=== PATIENT | male | born 1955 | race Caucasian/White ===

== ENCOUNTER 2017-04-28 08:20 | Day surgery (SDC) | payer MEDICAID ==
[~2017-04-28] VITALS: Ht 185.4 cm; Wt 103.4 kg
--- NOTE | ~2017-04-28 | OP ---
PATIENT NAME: CRISTINA BAPTISTE MEDICAL RECORD: [id number] :55 LOCATION:D.OPS ADMISSION DATE: SURGEON: CRISTIANO URENA MD DATE OF OPERATION: 04/28/2017 PREOPERATIVE DIAGNOSES: 1. Right back sebaceous cyst. 2. Hepatitis C. 3. Gastroesophageal reflux disease. 4. Benign prostatic hypertrophy. POSTOPERATIVE DIAGNOSES: 1. Right back sebaceous cyst. 2. Hepatitis C. 3. Gastroesophageal reflux disease. 4. Benign prostatic hypertrophy. PROCEDURE: Excision of 3 cm right back sebaceous cyst. SURGEON: Cristiano Urena MD REPORT OF PROCEDURE: The patient was placed in the left lateral decubitus position and the right upper back was prepped and draped in sterile fashion. A longitudinal incision was made in an ovoid fashion around the opening of the sebaceous cyst. As we got in, the subcutaneous tissues, it was noted to be inflamed from a recent infection. The sebaceous cyst was excised and sent off for permanent specimen. The side shore were difficult to determine because of the inflammation and for this reason, I just cooked the subcutaneous fatty tissue with a high level electrocautery. With the conclusion of the case, we made sure there was no sign of any bleeding. The wound was then irrigated out with normal saline and infused with 10 mL of 0.25% Marcaine with epinephrine. The subcutaneous tissues were reapproximated with interrupted 3-0 Vicryls and the skin was closed with running subcutaneous 5-0 Monocryl. COMPLICATIONS: None. CONDITION: Stable. ANESTHESIA: General endotracheal and local. BLOOD LOSS: Minimal. TRANSINT:[id number] Voice Confirmation ID: [id number] DOCUMENT ID: [id number] CRISTIANO URENA MD CC: DENIS PINEDA MD [id number] DICTATION DATE: 04/28/17 1226 FOUNDATION RELATIONS MANAGER: 04/28/17 1245 [facility] [address] [place] [address]
[~2017-04-28 08:20] MED LIST: CIPRO500 MG PO; FLOMAX0.4 MG PO; HYDROCODONE-APA1 TAB PO; LEVAQUIN500 MG PO; OMNICEF300 MG PO; PRILOSEC20 MG PO; ROCEPHIN 1 GM/D51 G1 IM; SUMATRIPTAN SUC25 MG PO; TORADOL10 MG PO; UROCIT-K10 MEQ PO
[2017-04-28 09:53] LABS: BASOPHILS 0.3 % (0-2); EOSINOPHILS 0.6 % (0-7); IMMATURE GRANULOCYTES 0.4 % (0-5); LYMPHOCYTES 34.2 % (15-50); MCH 30.6 pg (26.0-34.0); MCV 89.9 fL (80.0-100.0); MEAN PLATELET VOLUME 10.9 fL (7.4-10.4); MONOCYTES 8.5 % (2-11); PLATELET COUNT 210 10x3/uL (130-400); RBC 5.56 10x6/uL (4.20-6.10); RDW 13.7 % (11.5-14.5)
[2017-04-28] MEDS ORDERED: LIPITOR10 MG PO (09:56)
[2017-04-28 09:59] VITALS: BP 123/86; Ht 185.4 cm; Wt 103.4 kg
[2017-04-28 10:02] LABS: ANION GAP 13.7 mmol/L (8-16); CALCIUM 8.8 mg/dL (8.5-10.1); CARBON DIOXIDE 24.5 mmol/L (21.0-32.0); CREATININE - SERUM 1.2 mg/dL (0.6-1.3); POTASSIUM - SERUM 4.2 mmol/L (3.5-5.1)
[2017-04-28] MEDS ORDERED: HYDROCODONE-APA1 TAB PO (12:23)
== END 2017-04-28 14:29 | disposition home or self-care (01) ==
LOC: D.OPS 08:20 → D.PAN 12:30 → D.OPS 14:29
PROVIDERS: Surgery
DX: L72.3 Sebaceous cyst (principal); B19.20 Unspecified viral hepatitis C without hepatic coma; F17.200 Nicotine dependence, unspecified, uncomplicated; K21.9 Gastro-esophageal reflux disease without esophagitis; N40.0 Benign prostatic hyperplasia without lower urinary tract symptoms; Z01.812 Encounter for preprocedural laboratory examination

== ENCOUNTER 2018-08-27 12:28 | Inpatient (IN) | payer MEDICAID ==
[~2018-08-27] VITALS: Ht 185.4 cm; Wt 109.1 kg
[~2018-08-27 12:28] MED LIST changes: +LIPITOR10 MG PO
[2018-08-27 12:58] LABS: BASOPHILS 0.2 % (0-2); EOSINOPHILS 1.7 % (0-7); HEMOGLOBIN 15.8 g/dL (13.5-17.5); IMMATURE GRANULOCYTES 0.3 % (0-5); LYMPHOCYTES 28.9 % (15-50); MCH 30.9 pg (26.0-34.0); MCHC 33.6 g/dL (31.0-37.0); MEAN PLATELET VOLUME 10.8 fL (7.4-10.4); MONOCYTES 8.2 % (2-11); NEUTROPHILS 60.7 % (40-80); PLATELET COUNT 228 10x3/uL (130-400); RBC 5.11 10x6/uL (4.20-6.10); RDW 13.5 % (11.5-14.5); WBC 14.5 10x3/uL (4.8-10.8)
[2018-08-27 13:07] LABS: APTT 27.5 SECONDS (22.8-39.4); INR 1.07 (0.85-1.17); PROTIME 13.4 SECONDS (11.6-15.0)
[2018-08-27 13:11] LABS: ALBUMIN 3.6 g/dL (3.4-5.0); ALKALINE PHOSPHATASE 79 U/L (46-116); ALT (SGPT) 37 U/L (10-68); BILIRUBIN - TOTAL 0.25 mg/dL (0.2-1.3); CALC OSMOLALITY 285 mosm/kg (275-300); CALCIUM 9.2 mg/dL (8.5-10.1); CARBON DIOXIDE 26.6 mmol/L (21.0-32.0); CHLORIDE - SERUM 106 mmol/L (98-107); CREATININE - SERUM 2.1 mg/dL (0.6-1.3); GLUCOSE 95 mg/dL (74-106); POTASSIUM - SERUM 4.5 mmol/L (3.5-5.1); PROTEIN - SERUM 8.4 g/dL (6.4-8.2); SODIUM 139 mmol/L (136-145); UREA NITROGEN 36 mg/dL (7-18); eGFR NON AFRICAN AMERICAN 34 mL/min (90-120)
[2018-08-27 13:23] LABS: CKMB 1.3 U/L (0.0-3.6); CREATINE KINASE 132 UL (21-232); TROPONIN-I < 0.017 ng/mL (0.000-0.060)
[2018-08-27 15:00] VITALS: BP 103/68
[2018-08-27 15:15] VITALS: BP 112/74
[2018-08-27 15:45] VITALS: BP 110/73
--- NOTE | 2018-08-27 17:25 | NUR ---
RECEIVED PT FROM ER VIA WHEELCHAIR, ACCOMPANIED BY HOSPITAL STAFF. ALERT AND ORIENTED. UP AD SANTHOSH. NO C/O PAIN. NO S/S OF ACUTE DISTRESS NOTED. IV TO RIGHT HAND, NS INFUSING @ 125ML/HR. PT HAS HX OF IV DRUG USE. PT DENIES ANYTHING FURTHER AT THIS TIME. CALL LIGHT IN REACH. WILL CONTINUE TO MONITOR.
[2018-08-27 18:07] VITALS: BP 115/78; Ht 185.4 cm; Wt 109.1 kg
[2018-08-27 19:43] LABS: CKMB 1.1 U/L (0.0-3.6); CREATINE KINASE 118 UL (21-232); TROPONIN-I < 0.017 ng/mL (0.000-0.060)
[2018-08-27 20:00] VITALS: BP 126/77
--- NOTE | 2018-08-27 20:36 | NUR ---
PT SITTING UP IN BED ON PHONE WITH FAMILY. STATED HE NEEDS TO GO WALK AROUND, STARTED PT IV ABX AND ASKED PT TO JUST WALK WITH POLE AROUND NURSING UNIT. NO OTHER NEEDS VOICD, NO S/S OF DISTRESS. CONMTINUE WITH PLAN OF CARE
--- NOTE | 2018-08-27 20:57 | NUR ---
PT SITTING UP IN BED REQUESTED PAIN MEDICATION WHEN I CAME IN WITH 2100 MEDS. ADVISED PT HE STILL HAD AN HOUR BEFORE I CAN ADMINISTER PAIN MEDS. PT STATED ROOM IS HOT AND HE NEEDED IT TURNED DOWN TO BE COMFORTABLE. PT AIR SET ON 50. ENCOURAGED PT TO SHUT DOOR TO ROOM TO KEEP AIR IN ROOM INSTEAD OF HALLWAYS. NO OTHER NEEDS VOICED. CONTINUE WITH PLAN OF CARE
[2018-08-28] VITALS: BP 129/85
[2018-08-28 01:09] LABS: CKMB 1.2 U/L (0.0-3.6); CREATINE KINASE 133 UL (21-232); TROPONIN-I < 0.017 ng/mL (0.000-0.060)
--- NOTE | 2018-08-28 01:26 | NUR ---
I have reviewed this patient and I concur with the Shift Assessment completed by the Licensed Practical Nurse today this shift.
--- NOTE | 2018-08-28 03:19 | NUR ---
ADMINISTERED PRN PAIN MEDICATION PER PT REQUEST. STATED HE IS UNABLE TO SLEEP. PAIN IS IN KIDNEYS AND SIDE PER PT DUE TO HX OF KIDNEY STONES. PT HAS WALKED AROUND NURSES STATION SEVERAL TIMES AND ALSO DRINKING COFFEE THROUGH THE EVENING. NO OTHER NEEDS VOICED. CL IN REACH. CONTINUE WITH PLAN OF CARE
[2018-08-28 04:00] VITALS: BP 134/86
[2018-08-28 05:29] LABS: BASOPHILS 0 % (0-2); EOSINOPHILS 0 % (0-7); HEMATOCRIT 43.9 % (42.0-54.0); HEMOGLOBIN 14.7 g/dL (13.5-17.5); IMMATURE GRANULOCYTES 0.3 % (0-5); LYMPHOCYTES 10.5 % (15-50); MCH 30.6 pg (26.0-34.0); MCHC 33.5 g/dL (31.0-37.0); MCV 91.3 fL (80.0-100.0); MEAN PLATELET VOLUME 11.6 fL (7.4-10.4); MONOCYTES 0.9 % (2-11); NEUTROPHILS 88.3 % (40-80); PLATELET COUNT 211 10x3/uL (130-400); RBC 4.81 10x6/uL (4.20-6.10); RDW 13.5 % (11.5-14.5); WBC 15.3 10x3/uL (4.8-10.8)
[2018-08-28 06:12] LABS: CALC OSMOLALITY 288 mosm/kg (275-300); CALCIUM 8.7 mg/dL (8.5-10.1); CARBON DIOXIDE 21.7 mmol/L (21.0-32.0); CHLORIDE - SERUM 106 mmol/L (98-107); CKMB 1.3 U/L (0.0-3.6); CREATINE KINASE 133 UL (21-232); CREATININE - SERUM 1.6 mg/dL (0.6-1.3); GLUCOSE 139 mg/dL (74-106); POTASSIUM - SERUM 4.5 mmol/L (3.5-5.1); SODIUM 139 mmol/L (136-145); TROPONIN-I < 0.017 ng/mL (0.000-0.060); UREA NITROGEN 37 mg/dL (7-18); eGFR NON AFRICAN AMERICAN 47 mL/min (90-120)
--- NOTE | 2018-08-28 07:25 | NUR ---
PT SITTING UP IN BED, ALERT AND ORIENTED. UP AD SANTHOSH. STRICT I&O. INCENTIVE SPIROMETER AT BEDSIDE. ON TELEMETRY SR 63. IV TO RIGHT HAND, NS INFUSING @ 125ML/HR. SITE PATENT WITHOUT REDNESS OR SWELLING. PT C/O PAIN, GAVE NORCO 10 FOR PAIN. NO S/S OF ACUTE DISTRESS NOTED. CALL LIGHT IN REACH. PT DENIES ANYTHING FURTHER AT THIS TIME. WILL CONTINUE TO MONITOR.
[2018-08-28 08:23] VITALS: BP 127/87
[2018-08-28 11:58] VITALS: BP 127/73
[2018-08-28] MEDS ORDERED: ASPIRIN325 MG PO (13:50)
[2018-08-28] MEDS ORDERED: OMNICEF300 MG PO (13:51)
[2018-08-28] MEDS ORDERED: FLORAJEN3 CAPS460 MG PO (13:51)
[2018-08-28] MEDS ORDERED: PREDNISONE10 MG PO (13:52)
[2018-08-28] MEDS ORDERED: Nicoderm [PBKC] TRANSDERM (13:52)
--- NOTE | 2018-08-28 15:00 | MORECARE ---
CASE MANAGEMENT DISCHARGE SUMMARY PATIENT: CRISTINA BAPTISTEATT UNIT: [id number] ADM DATE: 08/27/18 AGE: 63 : 55 SEX: M ROOM/BED: D.2224 AUTHOR: DARIUSZDOC PHYSICIAN: REFERRING PHYSICIAN: MONSTER MONCADA DO DATE OF SERVICE: 08/28/18 Discharge Plan Patient Name: CRISTINA BAPTISTE Facility: [facility]:[place] : 1955 Planned Disposition: Home Anticipated Discharge Date: 08/28/18 Discharge Date: Expected LOS: 1 Initial Reviewer: [email or web address] Initial Review Date: 08/28/2018 Generated: 08/28/18 4:00 pm Comments DCP- Discharge Planning Updated by [email or web address]: Brenda Hernandes on 08/28/18 1:[address] Patient Name: CRISTINA BAPTISTE Admission Status: ER Accout number: [id number] Admission Date: 08-27-2018 : 1955 Admission Diagnosis: Attending: MONSTER MONCADA Current LOS: 1 Anticipated DC Date: 08-28-2018 Planned Disposition: Home Primary Insurance: MEDICAID [place] Discharge Planning Comments: CM met with patient to complete initial dc planning assessment. CM educated patient on the CM role and verbal consent given by patient to complete assessment. Patient lives at home with his . At discharge patient plans to return and feels this is a safe discharge. CM discussed availability of home health, rehab services, and medical equipment. Patient denied known discharge needs at this time. States his will pick him up for discharge. No needs identified. CM will continue to follow and will assist as needed with dc plans/needs. Handkerchief Presser: Brenda Hernandes DCPIA - Discharge Planning Initial Assessment Updated by [email or web address]: Brenda Hernandes on 08/28/18 2:54 pm * Is the patient Alert and Oriented? Yes * How many steps to enter\exit or inside your home? 3/0 * PCP Dr. Easton * [facility] [address] * Preadmission Environment Home with Family * ADLs Independent * Equipment None * List name and contact numbers for known caregivers / representatives who currently or will assist patient after discharge: Abeba Baptiste - - [phone] * Verbal permission to speak to the caregivers and representatives has been obtained from the patient. Yes * Community resources currently utilized None * Additional services required to return to the preadmission environment? No * Can the patient safely return to the preadmission environment? Yes * Has this patient been hospitalized within the prior 30 days at any hospital? Yes Patient Name: CRISTINA BAPTISTE Page 27196 at 1500 All edits/amendments must be made on the electronic document DICTATION DATE: 08/28/18 1500 WOODEN FENCE ERECTOR: VALENCIA 08/28/18 1500 RPT#: [id number] DC DATE: STATUS: ADM IN [facility] [address] [place] [address] END OF REPORT
--- NOTE | 2018-08-28 15:09 | NUR ---
PT DISCHARGED HOME WITH FAMILY VIA WHEELCHAIR. DISCONTINUED IV, CATHETER TIP INTACT. WENT OVER DISCHARGE INSTRUCTIONS WITH PT, PT VERBALIZED UNDERSTANDING. PT DENIES ANYTHING FURTHER.
--- NOTE | 2018-08-29 16:13 | MORECARE ---
CASE MANAGEMENT DISCHARGE SUMMARY PATIENT: CRISTINA BAPTISTEATT UNIT: [id number] ADM DATE: 08/27/18 AGE: 63 : 55 SEX: M ROOM/BED: D.2224 AUTHOR: DARIUSZDOC PHYSICIAN: REFERRING PHYSICIAN: MONSTER MONCADA DO DATE OF SERVICE: 08/29/18 Discharge Plan Patient Name: CRISTINA BAPTISTE Facility: [facility]:[place] : 1955 Planned Disposition: Home Anticipated Discharge Date: 08/28/18 Discharge Date: 08/28/2018 Expected LOS: 1 Initial Reviewer: [email or web address] Initial Review Date: 08/28/2018 Generated: 08/29/18 5:13 pm Comments DCP- Discharge Planning Updated by [email or web address]: Brenda Hernandes on 08/28/18 1:[address] Patient Name: CRISTINA BAPTISTE Admission Status: ER Accout number: [id number] Admission Date: 08-27-2018 : 1955 Admission Diagnosis: Attending: MONSTER MONCADA Current LOS: 1 Anticipated DC Date: 08-28-2018 Planned Disposition: Home Primary Insurance: MEDICAID [place] Discharge Planning Comments: CM met with patient to complete initial dc planning assessment. CM educated patient on the CM role and verbal consent given by patient to complete assessment. Patient lives at home with his . At discharge patient plans to return and feels this is a safe discharge. CM discussed availability of home health, rehab services, and medical equipment. Patient denied known discharge needs at this time. States his will pick him up for discharge. No needs identified. CM will continue to follow and will assist as needed with dc plans/needs. Agency Operator: Brenda Hernandes DCPIA - Discharge Planning Initial Assessment Updated by [email or web address]: Brenda Hernandes on 08/28/18 2:54 pm * Is the patient Alert and Oriented? Yes * How many steps to enter\exit or inside your home? 3/0 * PCP Dr. Easton * [facility] [address] * Preadmission Environment Home with Family * ADLs Independent * Equipment None * List name and contact numbers for known caregivers / representatives who currently or will assist patient after discharge: Abeba Baptiste - - [phone] * Verbal permission to speak to the caregivers and representatives has been obtained from the patient. Yes * Community resources currently utilized None * Additional services required to return to the preadmission environment? No * Can the patient safely return to the preadmission environment? Yes * Has this patient been hospitalized within the prior 30 days at any hospital? Yes Last DP export: 08/28/18 2:00 p Patient Name: CRISTINA BAPTISTE Page [id number] at 1613 All edits/amendments must be made on the electronic document DICTATION DATE: 08/29/181611 ETYMOLOGY TEACHER: VALENCIA 08/29/181611 RPT#: [id number] DC DATE:08/28/18 STATUS: DIS IN [facility] [address] [place] [address] END OF REPORT
== END 2018-08-28 15:34 | disposition home or self-care (01) | DRG 194 ==
LOC: D.ER 12:28 → D.MS 16:25
PROVIDERS: Emergency Medicine; ADMIT Family Medicine; ATTEND Family Medicine
DX: J18.9 Pneumonia, unspecified organism (principal); J90 Pleural effusion, not elsewhere classified; F17.213 Nicotine dependence, cigarettes, with withdrawal; N17.9 Acute kidney failure, unspecified; E86.0 Dehydration; I10 Essential (primary) hypertension; M19.90 Unspecified osteoarthritis, unspecified site; N20.0 Calculus of kidney; E66.9 Obesity, unspecified; Z68.31 Body mass index [BMI] 31.0-31.9, adult

== ENCOUNTER 2020-01-03 05:42 | Day surgery (SDC) | payer MEDICAID ==
[~2020-01-03] VITALS: Ht 185.4 cm; Wt 106.1 kg
--- NOTE | ~2020-01-03 | OP ---
PATIENT NAME: CRISTINA BAPTISTE MEDICAL RECORD: [id number] :55 LOCATION:D.OPS ADMISSION DATE: SURGEON: CRISTIANO URENA MD DATE OF OPERATION: 01/03/2020 PREOPERATIVE DIAGNOSES: 1. Left posterior shoulder sebaceous cyst. 2. Tobacco dependence syndrome. 3. Chronic hepatitis C. 4. Benign prostatic hypertrophy. POSTOPERATIVE DIAGNOSES: 1. Left posterior shoulder sebaceous cyst. 2. Tobacco dependence syndrome. 3. Chronic hepatitis C. 4. Benign prostatic hypertrophy. PROCEDURE: Excision of 3 cm left posterior shoulder sebaceous cyst. SURGEON: Cristiano Urena MD REPORT OF PROCEDURE: The patient was placed in the right lateral decubitus position and the left posterior shoulder was prepped and draped in sterile fashion. An ovoid 3 cm incision was made overlying the sebaceous cyst. The cyst was quite large. I was able to use sharp dissection to get around the cyst without ever penetrating it. Once we finally released the cyst from all the surrounding attachments then it was sent off for permanent specimen. We irrigated out the wound bed with normal saline and any bleeding was treated with electrocautery. The incision was then infused with a total of 10 mL of 0.25% Marcaine with epinephrine. The subcutaneous tissues were reapproximated with interrupted 3-0 Vicryl and the skin was closed with running subcutaneous 5-0 Monocryl. COMPLICATIONS: None. CONDITION: Stable. ANESTHESIA: General endotracheal and local. BLOOD LOSS: Minimal. TRANSINT:[id number] Voice Confirmation ID: [id number] DOCUMENT ID: [id number] CRISTIANO URENA MD CC: DENIS PINEDA MD [id number] DICTATION DATE: 01/03/20 0846 GENERATION TECHNOLOGIST: 01/03/[address] [facility] [address] [place] [address]
[~2020-01-03 05:42] MED LIST changes: +ASPIRIN325 MG PO; +FLORAJEN3 CAPS460 MG PO; +LISINOPRIL10 MG PO; +Nicoderm [PBKC] TRANSDERM; +PREDNISONE10 MG PO
[2020-01-03 06:23] LABS: BASOPHILS 0.2 % (0-2); EOSINOPHILS 2.6 % (0-7); HEMATOCRIT 48.6 % (42.0-54.0); HEMOGLOBIN 15.8 g/dL (13.5-17.5); IMMATURE GRANULOCYTES 0.3 % (0-5); LYMPHOCYTES 30.7 % (15-50); MCH 30.4 pg (26.0-34.0); MCHC 32.5 g/dL (31.0-37.0); MCV 93.6 fL (80.0-100.0); MONOCYTES 8.9 % (2-11); NEUTROPHILS 57.3 % (40-80); PLATELET COUNT 217 10x3/uL (130-400); RBC 5.19 10x6/uL (4.20-6.10); RDW 13.9 % (11.5-14.5); WBC 12.4 10x3/uL (4.8-10.8)
[2020-01-03 06:24] LABS: ANION GAP 15.4 mmol/L (8-16); CARBON DIOXIDE 24.1 mmol/L (21.0-32.0); CREATININE - SERUM 1.6 mg/dL (0.6-1.3); POTASSIUM - SERUM 4.5 mmol/L (3.5-5.1)
[2020-01-03 07:20] VITALS: BP 129/71; Ht 185.4 cm; Wt 106.1 kg
[2020-01-03] MEDS ORDERED: HYDROCODON-ACE1 EA10 PO (08:42)
== END 2020-01-03 10:54 | disposition home or self-care (01) ==
LOC: D.OPS 05:42
PROVIDERS: Anesthesiology; ATTEND Surgery
DX: L72.0 Epidermal cyst (principal); Z72.0 Tobacco use; B18.2 Chronic viral hepatitis C; D29.1 Benign neoplasm of prostate